=== PATIENT | female | born 1935 | race Caucasian/White ===

== ENCOUNTER → 2017-05-14 | Day surgery (SDC) | payer MEDICARE ==
[~2017-05-14] VITALS: Ht 149.9 cm; Wt 86.7 kg
[~2017-05-14] MED LIST: Bupivacaine-MPF 0.5% 30 mL Inj INFILTRATE ONE; CHOL200047 PO; CITA20TA11 PO; CLON0.2T PO; DULO30CA50 PO; Dexamethasone 4 mg/mL Inj ONE; EPHEDrine Sulfate 50 mg/mL Inj IVPUSH PRN; HYDROmorphone 1 mg/mL Inj IVPUSH PRN; IBUP200C11 PO; LOSA50TA37 PO; Lactated Ringer's 1,000 ML IV ONE; Lactated Ringer's 1,000 ML IV SCH; Lactated Ringer's 500 ML IV PRN; Lidocaine 2%-Epi 1:100,000 20 mL Inj NERVEBLOCK ONE; MetoCLOpramide 5 mg/mL 2 mL Inj IVPUSH PRN; OMEG-38 PO; Ondansetron 2 mg/mL 2 mL Inj IVPUSH PRN; Ondansetron 2 mg/mL 2 mL Inj ONE; PRE20 PO; Phenylephrine 10,000 mCg/mL Inj IVPUSH PRN; Propofol 10,000 mCg/mL 20 mL Inj ONE; SPIR25TA3 PO; fentaNYL-PF 50 mCg/mL 2 mL Inj IVPUSH PRN; fentaNYL-PF 50 mCg/mL 2 mL Inj ONE
[2017-05-14 15:00] VITALS: BP 166/80; PULSE 66; RESP 14; O2SAT 97
--- NOTE | 2017-05-14 17:56 | PCM.HPANE ---
Patient Data Date of Service: May 14, 2017 Surgeon Admitting Provider: Attending Provider:Tiff Perez MD Primary Care Physician:Hai Fletcher MD Other Provider:Araceli Pimentel Anesthesia Reason for Visit Acute Non-Intractable Headache Ht/WT & BMI Height (Feet): 4 Height (Inches): 11 Weight (Kilograms): 86.7 Body Mass Index 38.00 Allergies Coded Allergies: TAPE (Verified Allergy, Severe, Redness, Bruising (Paper OK), 03/21/10) pneumococcal vaccine (Verified Allergy, Severe, Swelling, 03/21/10) Penicillins (Verified Allergy, Unknown, 07/06/13) Past Anesthesia History Anesthesia History: Positive for:: Anesthesia Reactions (sometimes a little slow waking up), Denies:: Abnormal Airway, Difficult Intubation, Fam Anesthesia Reaction, Fam Malignant Hypertherm, Malignant Hyperthermia Diabetes History Hx Diabetes?: No MRSA MRSA: No Medications Blood Thinner: Aspirin Hypertension Medication: Yes Home Meds Incl Beta Nereida: No Reported Medications Cholecalciferol (Vitamin D3) (Vitamin D3)2,000 Unit Capsule2,000 Unit PO DAILY 05/10/17 Spironolactone 25 Mg Brwfvm35 Mg PO DAILY #30 TABLET Ref 0 05/10/17 Prednisone (PredniSONE)20 Mg Eqmyfe10 Mg PO DAILY Ref 0 05/10/17 Losartan Potassium 50 Mg Pcrmvq46 Mg PO DAILY 05/10/17 [place]-3/Dha/Epa/Fish Oil (Fish Oil 1,000 mg Softgel)1 Each Capsule2 Each PO DAILY 05/10/17 Duloxetine 30 Mg Capsule.dr30 Mg PO DAILY Ref 0 05/10/17 Clonidine 0.2 Mg Tablet0.2 Mg PO HS Ref 0 05/10/17 Citalopram 20 Mg Lrnpyx16 Mg PO DAILY Ref 0 05/10/17 Ibuprofen (Advil)200 Mg Obeplch026 Mg PO Q6H PRN For Pain 05/10/17 Discontinued Reported Medications Pantoprazole-Expunged Drug, Do Not Renew! (Protonix-Expunged Drug, Do Not Renew! )40 Mg Tablet.dr40 Mg PO DAILY #30 TAB Ref 0 40 MG 10/13/13 Losartan-Expunged Drug, Do Not Renew! 50 Mg Nujnbz01 Mg PO BID #60 TAB 07/06/13 Sodium,Potassium,&Mag Sulfates (Suprep Bowel Prep Kit)354 Ml Soln. Ml PO UD follow colonoscopy prep instructions 07/06/13 Spironolactone-Expunged Drug, Do Not Renew! 25 Mg Dqkntk66 Mg PO DAILY 07/06/13 Enoxaparin-Expunged Drug, Do Not Renew! (Lovenox-Expunged Drug, Do Not Renew!) 30 Mg/0.3 Ml Disp.syrin30 Mg SQ BID 04/05/10 Hydroxyzine Tahira-Expunged Drug, Do Not Renew! (Vistaril-Expunged Drug, Do Not Renew!)25 Mg Ueu12-44 Mg PO Q4-6H 04/05/10 Oxycodone/APAP-Expunged Drug, Do Not Renew! (Percocet 5/325-Expunged Drug, Do Not Renew!)1 Each Tablet1-2 Tab PO Q3-4HP 04/05/10 Carvedilol-Expunged Drug, Do Not Renew! 6.25 Mg Tablet6.25 Mg PO BID 03/21/10 Clonidine-Expunged Drug, Do Not Renew! 0.2 Mg Tablet0.2 Mg PO DAILY 03/21/10 History History of ENT Problems?: No HEENT History: Denies:: Abnormal Airway Difficult Intubation Dysphagia Hearing Problem Denture Type: None Teeth Condition: Within Normal Limits Hx of Heart Problems?: Yes Cardiovascular History: Positive for:: Hypertension Denies:: AICD Atrial Fibrillation Chest Pain Irregular Heartbeat Pacemaker Valvular Heart Disease Hx of Respiratory Problem?: Yes Respiratory History: Positive for:: Pneumonia (40 years ago) Denies:: Asthma COPD Cough Hemoptysis Oxygen Administration Tuberculosis Use of C-PAP Machine Use of Inhalers / NEBS Hx Neurologic Problems?: Yes Neurological History: Positive for:: Headaches (chronic intractable headache, current admission problem) Denies:: CVA Dementia Multiple Sclerosis Parkinson's Disease Peripheral Neuropathy Seizures TIA Hx of GI Problems?: Yes Gastrointestinal History: Denies:: Cirrhosis Diverticulitis Gastroesphageal Reflux Heartburn Hepatitis Liver Disease Hx of Problems?: No Genitourinary History: Denies:: Kidney Stones Urinary Tract Infection Female Hx: Denies:: Currently (hysterectomy) Problems with Breasts? Skin History: Denies:: History Skin Disorders? Hx Musculoskeletal Problems?: Yes Musculoskeletal History: Positive for:: Back Injury (2 prior back surgeries) Degenerative Joint Joint Replacement (right knee ) Osteoarthritis Hx of Psycho/Social Problems?: Yes Psycho Social History: Positive for:: Hx Depression Denies:: Anxiety Hx Surgeries?: Yes (laminectomy x 2; finger surgery; appy; r knee; hysterectomy , tonsil) Hx Any Other Health Problems?: Yes Other History: Denies:: Cancer Hospitalization Hx Diabetes: No Hx Alcohol Use: NoHx Substance Use: No Stop/Bang P-Blood Pressure: treated: Yes B- Body Mass Index > 35 kg/m2: Yes A- Age over 50: Yes N- Neck Large Circumference: No G- Gender Male: No NYDIA Risk Assessment: High Risk, =/>3 Yes NYDIA Category 4 OutPt Procedure: Yes Risk Assessment Category Category 1A: Patient has history of documented sleep apnea, and HAS NOT received any narcotic, sedative or anesthesia administration during this stay. Category 1B: Patient has history of documented sleep apnea, and HAS received any narcotic , sedative or anesthesia administration during this stay Category 2: Patient has SUSPECTED Obstructive Sleep Apnea, and HAS received any narcotic , sedative or anesthesia administration during this stay. Category 3: Patient has SUSPECTED Obstructive Sleep Apnea and HAS NOT received narcotic, sedative or anesthesia administration during this stay. Category 4: Outpatient in Procedural Areas with known sleep apnea or who screen positive for High Risk via the STOP/BANG questionnaire. Exam Exam Vital Signs Vital Signs Date Time Temp Pulse Resp B/P Pulse Ox O2 Delivery O2 Flow Rate FiO2 05/14/17 15:00 36.6 66 14 166/80 97 Room Air General Appearance: Alert, Oriented X3 HEENT/AIRWAY: MP 2 Lungs: Clear to Auscultation, Normal Air Movement Heart: Exam Unremarkable, Regular Rate/Rhythm, Normal S1, Normal S2, No Murmurs /Rubs/Gallops Meds/Labs/Diagnostics Admission Meds Current Medications Lactated Ringer's (Lr) 1,000 ml @ ud STK-MED ONCE IV Last administered on t 15:03; Start 05/14/17 at 15:03; Stop 05/14/17 at 15:04; Status DC Plan Impression Patient chart reviewed, patient interviewed and anesthestic plan with risks, benefits, and alternatives discussed, and informed consent obtained. Brandt Bolanos MD May 14, 2017 17:56
--- NOTE | 2017-05-14 18:04 | PCM.HPANE ---
Patient Data Surgeon Admitting Provider: Attending Provider:Tiff Perez MD Primary Care Physician:Hai Fletcher MD Other Provider:Florence Pimentelingham Anesthesia Reason for Visit Acute Non-Intractable Headache Ht/WT & BMI Height (Feet): 4 Height (Inches): 11 Weight (Kilograms): 86.7 Body Mass Index 38.00 Allergies Coded Allergies: TAPE (Verified Allergy, Severe, Redness, Bruising (Paper OK), 03/21/10) pneumococcal vaccine (Verified Allergy, Severe, Swelling, 03/21/10) Penicillins (Verified Allergy, Unknown, 07/06/13) Past Anesthesia History Anesthesia History: Positive for:: Anesthesia Reactions (sometimes a little slow waking up), Denies:: Abnormal Airway, Difficult Intubation, Fam Anesthesia Reaction, Fam Malignant Hypertherm, Malignant Hyperthermia Diabetes History Hx Diabetes?: No MRSA MRSA: No Medications Blood Thinner: Aspirin Hypertension Medication: Yes Home Meds Incl Beta Nereida: No Reported Medications Cholecalciferol (Vitamin D3) (Vitamin D3)2,000 Unit Capsule2,000 Unit PO DAILY 05/10/17 Spironolactone 25 Mg Hinoae79 Mg PO DAILY #30 TABLET Ref 0 05/10/17 Prednisone (PredniSONE)20 Mg Cckkfa31 Mg PO DAILY Ref 0 05/10/17 Losartan Potassium 50 Mg Zobprf81 Mg PO DAILY 05/10/17 [place]-3/Dha/Epa/Fish Oil (Fish Oil 1,000 mg Softgel)1 Each Capsule2 Each PO DAILY 05/10/17 Duloxetine 30 Mg Capsule.dr30 Mg PO DAILY Ref 0 05/10/17 Clonidine 0.2 Mg Tablet0.2 Mg PO HS Ref 0 05/10/17 Citalopram 20 Mg Jvthhu24 Mg PO DAILY Ref 0 05/10/17 Ibuprofen (Advil)200 Mg Rrjepon014 Mg PO Q6H PRN For Pain 05/10/17 Discontinued Reported Medications Pantoprazole-Expunged Drug, Do Not Renew! (Protonix-Expunged Drug, Do Not Renew! )40 Mg Tablet.dr40 Mg PO DAILY #30 TAB Ref 0 40 MG 10/13/13 Losartan-Expunged Drug, Do Not Renew! 50 Mg Risvea04 Mg PO BID #60 TAB 07/06/13 Sodium,Potassium,&Mag Sulfates (Suprep Bowel Prep Kit)354 Ml Soln.rqaat520 Ml PO UD follow colonoscopy prep instructions 07/06/13 Spironolactone-Expunged Drug, Do Not Renew! 25 Mg Hvhipd21 Mg PO DAILY 07/06/13 Enoxaparin-Expunged Drug, Do Not Renew! (Lovenox-Expunged Drug, Do Not Renew!) 30 Mg/0.3 Ml Disp.syrin30 Mg SQ BID 04/05/10 Hydroxyzine Tahira-Expunged Drug, Do Not Renew! (Vistaril-Expunged Drug, Do Not Renew!)25 Mg Rgb12-60 Mg PO Q4-6H 04/05/10 Oxycodone/APAP-Expunged Drug, Do Not Renew! (Percocet 5/325-Expunged Drug, Do Not Renew!)1 Each Tablet1-2 Tab PO Q3-4HP 04/05/10 Carvedilol-Expunged Drug, Do Not Renew! 6.25 Mg Tablet6.25 Mg PO BID 03/21/10 Clonidine-Expunged Drug, Do Not Renew! 0.2 Mg Tablet0.2 Mg PO DAILY 03/21/10 History History of ENT Problems?: No HEENT History: Denies:: Abnormal Airway Difficult Intubation Dysphagia Hearing Problem Denture Type: None Hx of Heart Problems?: Yes Cardiovascular History: Positive for:: Hypertension Denies:: AICD Atrial Fibrillation Chest Pain Irregular Heartbeat Pacemaker Valvular Heart Disease Hx of Respiratory Problem?: Yes Respiratory History: Positive for:: Pneumonia (40 years ago) Denies:: Asthma COPD Cough Hemoptysis Oxygen Administration Tuberculosis Use of C-PAP Machine Use of Inhalers / NEBS Hx Neurologic Problems?: Yes Neurological History: Positive for:: Headaches (chronic intractable headache, current admission problem) Denies:: CVA Dementia Multiple Sclerosis Parkinson's Disease Seizures Hx of GI Problems?: Yes Hx of Problems?: No Genitourinary History: Denies:: Kidney Stones Urinary Tract Infection Female Hx: Denies:: Currently (hysterectomy) Problems with Breasts? Skin History: Denies:: History Skin Disorders? Hx Musculoskeletal Problems?: Yes Musculoskeletal History: Positive for:: Back Injury (2 prior back surgeries) Degenerative Joint Joint Replacement (right knee ) Osteoarthritis Psycho Social History: Denies:: Anxiety Hx Depression Hx Surgeries?: Yes (laminectomy x 2; finger surgery; appy; r knee; hysterectomy , tonsil) Hx Any Other Health Problems?: Yes Other History: Denies:: Cancer Hospitalization Hx Diabetes: No Hx Alcohol Use: NoHx Substance Use: No Stop/Bang P-Blood Pressure: treated: Yes B- Body Mass Index > 35 kg/m2: Yes A- Age over 50: Yes N- Neck Large Circumference: No G- Gender Male: No Risk Assessment Category Category 1A: Patient has history of documented sleep apnea, and HAS NOT received any narcotic, sedative or anesthesia administration during this stay. Category 1B: Patient has history of documented sleep apnea, and HAS received any narcotic , sedative or anesthesia administration during this stay Category 2: Patient has SUSPECTED Obstructive Sleep Apnea, and HAS received any narcotic , sedative or anesthesia administration during this stay. Category 3: Patient has SUSPECTED Obstructive Sleep Apnea and HAS NOT received narcotic, sedative or anesthesia administration during this stay. Category 4: Outpatient in Procedural Areas with known sleep apnea or who screen positive for High Risk via the STOP/BANG questionnaire. Exam Exam Vital Signs Vital Signs Date Time Temp Pulse Resp B/P Pulse Ox O2 Delivery O2 Flow Rate FiO2 05/14/17 15:00 36.6 66 14 166/80 97 Room Air Meds/Labs/Diagnostics Admission Meds Current Medications Lactated Ringer's (Lr) 1,000 ml @ ud STK-MED ONCE IV Last administered on t 15:03; Start 05/14/17 at 15:03; Stop 05/14/17 at 15:04; Status DC Plan Impression Patient chart reviewed, patient interviewed and anesthestic plan with risks, benefits, and alternatives discussed, and informed consent obtained. Brandt Bolanos MD May 14, 2017 18:04
[2017-05-14 19:30] VITALS: BP 150/67; PULSE 67; RESP 14; O2SAT 96
[2017-05-14 19:35] VITALS: BP 143/79; PULSE 65; RESP 21; O2SAT 98
--- NOTE | 2017-05-14 19:38 | PCM.ANEP1 ---
Post Anesthesia PACU Phase 1 Assessment Date of Service: May 14, 2017 Vital Signs Vital Signs Date Time Temp Pulse Resp B/P Pulse Ox O2 Delivery O2 Flow Rate FiO2 05/14/17 19:35 65 21 143/79 98 Room Air 05/14/17 19:30 36.6 67 14 150/67 96 Room Air 05/14/17 15:00 36.6 66 14 166/80 97 Room Air Anesthetic Administered: MAC Level of Alertness: Awake, talking HANNA's with Equal Strength: Yes Pain: No Nausea or Vomiting: No CV Function & Hydration Stable: Yes Airway Device: Oxygen Delivery: Room Air Lungs: Clear to Auscultation, Normal Air Movement PACU Phase 2 Assessment Complications: No Follow up Care: No Patient Instructions Provided: N/A Brandt Bolanos MD May 14, 2017 19:37
[2017-05-14 19:40] VITALS: BP 162/82; PULSE 61; RESP 16; O2SAT 99
--- NOTE | 2017-05-14 19:48 | OP ---
[address] [address] OPERATIVE REPORT PATIENT: CHEIKH FRAUSTO : 1935 MR#: [id number] ADMIT: 05/14/2017 JOB ID: [id number] DATE OF SURGERY: 05/14/2017 PREOPERATIVE DIAGNOSIS(ES): Headache. Possible giant cell arteritis. POSTOPERATIVE DIAGNOSIS(ES): Headache. Possible giant cell arteritis. PROCEDURE PERFORMED: Right superficial temporal artery biopsy. SURGEON: Tiff Perez MD COMPRESSOR STATION ENGINEER: Jeison Mckeon MD and Olga Barrios DO INDICATIONS: The patient is a 81-year-old lady who recently started having temporal headaches and visual disturbances and was empirically diagnosed with giant cell arteritis and was started on prednisone. After discussing the risks, benefits, and alternatives, she is here today for right superficial temporal artery biopsy, given that is the dominant side of the symptoms. PROCEDURE DETAILS: She was placed in supine position and underwent sedation and the right yazidism was prepped and draped in the usual sterile fashion. We palpated the pulse over the superficial temporal artery and then marked our incision, and after doing a surgical time-out made a vertical incision along the vessel, dividing the skin and subcutaneous tissue sharply. We avoided cautery throughout the case to avoid damage to the hair follicles. Once we divided the preauricular fascia, we were able to identify the superficial temporal artery, which we traced distally superiorly. We ligated small branches with 3-0 silk real and clips. we then ligated a 5 cm section of the superficial temporal artery and sent the specimen off to pathology. After ensuring hemostasis, we closed the incision with 4-0 Monocryl and dressed the wound with Dermabond. She tolerated the procedure well and she was taken to the recovery room in stable condition. VLAD
[2017-05-14 19:50] VITALS: BP 155/76; PULSE 67; RESP 16; O2SAT 100
[2017-05-14 20:33] VITALS: BP 158/82; PULSE 67; RESP 16; O2SAT 97
--- NOTE | 2017-05-16 16:32 | PATH ---
SURGICAL PATHOLOGY Attending Physician:Tiff Perez MD CASE STATUS: Signed Out PATIENT NAME: CHEIKH FRAUSTO PID: [id number] : 1935 DATE COLLECTED:05/14/2017 00:00 SPECIMEN: Artery, Biopsy CLINICAL HISTORY: HEADACHE 1). RIGHT TEMPORAL ARTERY, SUPERFICIAL FINAL DIAGNOSIS: Right Temporal Artery, Superficial, Biopsy: Segment of artery with no evidence of active giant cell arteritis. Negative for granulomata or significant chronic inflammation. 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 ICD10: R51 NOTE: Forty-two total cross-sections of artery are examined. GROSS DESCRIPTION: The specimen is received in one formalin filled container labeled with the patient's name, sublabeled "right superficial temporal artery" and consists of a pink-garcia soft shaped portion of tissue which measures 3.5 CM in length by 0.1 CM in diameter. The specimen is inked blue and entirely submitted in one cassette to be sectioned at the time of embedding. 05/15/2017DC MICRO DESCRIPTION: An elastin stain is performed to highlight the elastic lamina and shows multifocal areas of loss. A control stain shows appropriate reactivity. ICD-9 CODES: CPT CODES: 1: 31839, 77825 Electronically Signed Out Silvio Aguiar MD, Ph.D. [facility] Pathology [facility] [address], [place] [address] Technical component performed at [facility], [address] [place] [address] Ave[address], [address]
== END | disposition home or self-care (01) ==
LOC: SAS 14:14
PROVIDERS: ATTEND Student in an Organized Health Care Education/Training Program
PROC: 03BS0ZX Excision of Right Temporal Artery, Open Approach, Diagnostic (ICD-10-PCS; principal; 2017-05-14 16:15)
DX: R51 Headache (principal); I10 Essential (primary) hypertension; E66.9 Obesity, unspecified; F32.9 Major depressive disorder, single episode, unspecified; Z68.37 Body mass index [BMI] 37.0-37.9, adult
CPT/HCPCS: 37609; 88305; 88313; J1100; J2405; J2704; J3010; J7120